=== PATIENT | female | born 1950 | race Caucasian/White ===

== ENCOUNTER 2016-11-06 20:04 | Emergency (ER) | payer OTHER ==
[~2016-11-06 20:04] MED LIST: ACETAMINOPHEN PO; AMARYL PO; AMOXICILLIN PO; ASPIRIN81 MG PO; ASTEPRO137 MCG/0. NS; AUGMENTIN PO; AZELASTINE; BACTRIM DS TABL1 TA1 PO; BYETTA10 MCG/0.0 INJ; CALCIUM 5001 TAB PO; CELEXA PO; CITALOPRAM HBR40 MG PO; DARVOCET-N 1001 TAB PO; DEPAKOTE ER PO; DIVALPROEX SOD500 MG PO; ENDOCET; ENDODAN PO; FAMOTIDINE PO; FERROUS SULFATE PO; FLEXERIL10 MG PO; FLONASE 0.05% N16 G1; FOLIC ACID PO; FOLPLEX; FOLPLEX PO; FOSINOPRIL PO; GLUCOPHAGE500 MG PO; HEARTBURN RELIE20 MG PO; HUMALOG MIX 75/10 ML SUBQ; IBUPROFEN600 MG PO; IMODIUM2 MG PO; KEFLEX PO; KEFLEX500 MG PO; LASIX20 MG PO; LEVAQUIN PO; LEXAPRO PO; LITHIUM PO; LOTENSIN HCT 101 TA1 PO; LOTENSIN HCT 11 EACH PO; LOTENSIN10 MG PO; METRONIDAZOLE PO; MEVACOR PO; MOBIC PO; MYSOLINE50 MG PO; NASONEX17 GM; NEUPRO1 EAC2 TD; NEURONTIN PO; NITROGLYCERIN0.4 MG SL; NITROGLYGERIN0.4 MG SL; NOVOLOG7030 SUBQ; ORPHENADRINE PO; OS-CAL 500500 MG PO; OYSTER CALCIUM500 MG PO; PERCOCET5/325 PO; PHENERGAN PO; PHENERGAN25 M1 PO; PRAVACHOL PO; PRAVASTATIN SOD40 MG PO; PRIMIDONE250 MG PO; REQUIP0.5 MG PO; REQUIP1 MG PO; SEROQUEL PO; SINEMET 10-1001 EACH PO; SINEMET PO; SUDAFED PE COLD1 TAB PO; SYNTHROID PO; SYNTHROID25 MCG PO; TRAZODONE PO; VESICARE PO; VISTARIL PO; VITAMIN D 4001 UDTAB PO; VITAMIN D2000 UNI1 PO; VITAMIN D2000 UNIT PO; VITAMIN D3400 UNIT PO; ZANTAC PO; [UNRECOGNIZED DRUG - REMARK]
== END 2016-11-06 21:19 | disposition home or self-care (01) ==
LOC: SED 20:04
DX: S61.012A Laceration without foreign body of left thumb without damage to nail, initial encounter (principal); Z23 Encounter for immunization; I10 Essential (primary) hypertension; Z79.899 Other long term (current) drug therapy; W45.8XXA Other foreign body or object entering through skin, initial encounter; Y92.009 Unspecified place in unspecified non-institutional (private) residence as the place of occurrence of the external cause
CPT/HCPCS: 90471; 90715; 99283